=== PATIENT | male | born 1990 ===

== ENCOUNTER 2018-03-21 18:49 | Emergency (ER) | payer SELFPAY ==
[2018-03-21 18:52] VITALS: BP 144/86; PULSE 73; RESP 26; O2SAT 99; BMI 34.0
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
[2018-03-21 19:14] LABS: Absolute Lymphocyte Count 2.26 X10^3/ul (0.83-4.51); Absolute Neutrophil Count 3.9 X10^3/uL (2.0-7.7); Basophil# 0.05 X10^3/uL; Basophil% 0.7 % (0-1); Eosinophil# 0.11 X10^3/uL; Eosinophils% 1.6 % (0-5); Hematocrit 45.7 % (40-54); Hemoglobin 15.8 g/dl (13.0-16.5); Lymphocyte # 2.26 X10^3/ul (4.0); Lymphocyte % 33.7 % (19-41); Mean Corp Hgb Conc 34.6 g/gl (32-36); Mean Corpuscular Volume 92.5 fL (80-94); Mean Platelet Vol. 10.3 fl (6.2-12.0); Monocyte# 0.32 X10^3/uL; Monocyte% 4.8 % (0-10); Neutrophil # 3.91 X10^3/uL (2.7-7.7); Neutrophil % 58.3 % (47-70); POSITIVE COUNT NO; POSITIVE DIFFERENTIAL NO; POSITIVE MORPHOLOGY NO; Platelet Count 299 K/mm3 (150-450); RBC Distribution Width CV 13.4 % (11.6-14.6); RBC Distribution Width SD 44.2 fl (35.1-43.9); Red Blood Count 4.94 M/mm3 (4.6-6.2); White Blood Count 6.7 K/mm3 (4.4-11.0)
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
[2018-03-21 19:19] LABS: International Normalized Ratio 0.9; Prothrombin Time (Protime)PT. 12.6 SECONDS (11.7-14.9)
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
[2018-03-21 19:29] LABS: AST(SGOT) 61 U/L (15-37); Alanine Aminotransfer ALT/SGPT 122 U/L (16-61); Albumin, Serum 4.4 g/dL (3.2-5.0); Alkaline Phosphatase 96 U/L (45-117); Anion Gap 10 (5-15); BUN 10 mg/dL (7-18); BUN/Creat Ratio 8.3 RATIO (10-20); Calcium,Total 8.1 mg/dL (8.5-10.1); Chloride 110 mmol/L (98-107); Creatinine, Serum 1.21 mg/dL (0.70-1.30); EST Glomerular Filtration Rate 75 mL/min (>60); Est Glom Filt Rate - Afr Amer 91 mL/min (>60); Estimated Creatinine Clearance 90.08 ml/min; Globulin 4.3 g/dL (2.2-4.2); Glucose 82 mg/dL (74-106); Potassium 3.2 mmol/L (3.5-5.1); Protein, Total 8.7 g/dL (6.4-8.2); Sodium Level 146 mmol/L (136-145)
[2018-03-21] MEDS: 0.9% Normal Saline 1,000 ML 999 ML IV (19:41)
[2018-03-21 19:42] VITALS: BP 132/78; PULSE 83; RESP 17; O2SAT 97
== END 2018-03-21 19:48 | disposition short-term general hospital (02) ==
LOC: ED 19:43
PROVIDERS: Emergency Provider Emergency Medicine
DX: S01.01XA Laceration without foreign body of scalp, initial encounter (principal); S41.011A Laceration without foreign body of right shoulder, initial encounter; S81.011A Laceration without foreign body, right knee, initial encounter; S20.312A Abrasion of left front wall of thorax, initial encounter; S20.311A Abrasion of right front wall of thorax, initial encounter; S30.811A Abrasion of abdominal wall, initial encounter; V58.0XXA Driver of pick-up truck or van injured in noncollision transport accident in nontraffic accident, initial encounter; Y93.C2 Activity, hand held interactive electronic device; Y92.410 Unspecified street and highway as the place of occurrence of the external cause
CPT/HCPCS: 70450; 71045; 72170; 80053; 80320; 85025; 85610; 96360; 99285; J7030; A4216; G0480